=== PATIENT | male | born 1985 | race Caucasian/White ===

== ENCOUNTER 2020-02-14 08:14 | Inpatient (IN) | payer OTHER ==
--- NOTE | 2020-02-14 08:25 | BHS.RME ---
Substance Use & Tx History - Substance Use History Heroin Substance amount: 10 bags Frequency of use: Daily Substance route: Injection (ex: intravenous or skin popping) Date of Last Use: 02/13/20 Cocaine- Powder Substance amount: 2grams Frequency of use: Less than 3 times per week Substance route: Injection (ex: intravenous or skin popping) Date of Last Use: 02/12/20 Nicotine Substance amount: 1pack Frequency of use: Daily Substance route: Smoking Date of Last Use: 02/14/20 Physical/Psych/Mental Status - Behavior General Behavior: Increased activity (restlessness, agitation) Eye Contact: Normal - Cooperativeness Cooperativeness: Cooperative - Thinking Thought Processes: Tight, Logical, Goal Directed Thought content: Future oriented - Physical Health Problems Is patient presently having any pain?: No Does patient presently have any injuries (include location): No Does patient currently have a fever: No Is patient : No COWS - Scale Resting Pulse: 0= [place] 80 or Below Sweatin= Chills/Flushing Restless Observation: 3= Extraneous Movement Pupil Size: 1= Pupils >than Normal Bone or Joint Aches: 1= Mild Discomfort Runny Nose/ Eye Tearin= None GI Upset > 30mins: 0= None Tremor Observation: 2= Slight Tremor Visible Yawning Observation: 2= >3x During Session Anxiety or Irritability: 2=Irritable/Anxious Goose Flesh Skin: 0=Smooth Skin COWS Score: 12
--- NOTE | 2020-02-14 08:41 | HP ---
COWS - Scale Resting Pulse: 0= [place] 80 or Below Sweatin= Chills/Flushing Restless Observation: 3= Extraneous Movement Pupil Size: 1= Pupils >than Normal Bone or Joint Aches: 1= Mild Discomfort Runny Nose/ Eye Tearin= None GI Upset > 30mins: 0= None Tremor Observation: 2= Slight Tremor Visible Yawning Observation: 2= >3x During Session Anxiety or Irritability: 2=Irritable/Anxious Goose Flesh Skin: 0=Smooth Skin COWS Score: 12 CIWA Score - Admission Criteria OASAS Guidelines: Admission for Medically Managed Detox: Requires at least one of the followin. CIWA greater than 12 2. Seizures within the past 24 hours 3. Delirium tremens within the past 24 hours 4. Hallucinations within the past 24 hours 5. Acute intervention needed for co occurring medical disorder 6. Acute intervention needed for co occurring psychiatric disorder 7. Severe withdrawal that cannot be handled at a lower level of care (continued vomiting, continued diarrhea, abnormal vital signs) requiring intravenous medication and/or fluids 8. Admitting History and Physical - Admission History of Present Illness: Mr. Benson is a 34 yo gentleman who presents to [facility] requesting admission to detox for heroin and cocaine use disorder. He was last here for detox in 2013. PMH:/PSH/Psych/Legal:none SOC: lives in the [place] with his parents Substance Use History Heroin Substance amount: 10 bags Frequency of use: Daily Substance route: Injection (ex: intravenous or skin popping) Date of Last Use: 02/13/20 First use age 29 y No OD No Narcan kit Cocaine- Powder Substance amount: 2grams Frequency of use: Less than 3 times per week Substance route: Injection (ex: intravenous or skin popping) Date of Last Use: 02/12/20 First use: age 29 y Nicotine Substance amount: 1pack Frequency of use: Daily Substance route: Smoking First use age 14y Methadone, Suboxone: none History Source: Patient Limitations to Obtaining History: No Limitations - Smoking History Smoking history: Current every day smoker Have you smoked in the past 12 months: Yes Aproximately how many cigarettes per day: 20 - Alcohol/Substance Use Hx Alcohol Use: No Admission ROS S - HPI Allergies/Adverse Reactions: Allergies Allergy/AdvReac Type Severity Reaction Status Date / Time No Known Allergies Allergy Verified 02/14/20 08:41 Exam Limitations: No Limitations - Ebola screening Have you had contact with anyone from an Ebola affected area: No Have you been sick,other than usual withdrawal symptoms: No Do you have a fever: No - Review of Systems Constitutional: No Symptoms Reported EENT: reports: No Symptoms Reported Respiratory: reports: No Symptoms reported Cardiac: reports: No Symptoms Reported GI: reports: Nausea : reports: No Symptoms Reported Musculoskeletal: reports: Joint Pain Integumentary: reports: No Symptoms Reported Neuro: reports: No Symptoms reported Endocrine: reports: No Symptoms Reported Hematology: reports: No Symptoms Reported Psychiatric: reports: Anxious Patient History - Patient Medical History Hx Anemia: No Hx Asthma: No Hx Chronic Obstructive Pulmonary Disease (COPD): No Hx Cancer: No Hx Cardiac Disorders: No Hx Congestive Heart Failure: No Hx Hypertension: No Hx Hypercholesterolemia: No Hx Pacemaker: No HX Cerebrovascular Accident: No Hx Seizures: No Hx Dementia: No Hx Diabetes: No Hx Gastrointestinal Disorders: No Hx Liver Disease: No Hx Genitourinary Disorders: No Hx Sexually Transmitted Disorders: No Hx Renal Disease (ESRD): No Hx Thyroid Disease: No Hx Human Immunodeficiency Virus (HIV): No Hx Hepatitis C: No Hx Depression: No Hx Suicide Attempt: No Hx Bipolar Disorder: No Hx Schizophrenia: No - Patient Surgical History Past Surgical History: Yes Hx Neurologic Surgery: No Hx Cataract Extraction: No Hx Cardiac Surgery: No Hx Lung Surgery: No Hx Breast Surgery: No Hx Breast Biopsy: No Hx Abdominal Surgery: No Hx Appendectomy: No Hx Cholecystectomy: No Hx Genitourinary Surgery: No Hx Section: No Hx Orthopedic Surgery: No Other Surgical History: L ear sx at age 11 yrs Anesthesia Reaction: No - PPD History Date: 01/25/14 Results: 0 mm - Smoking Cessation Smoking history: Current every day smoker Have you smoked in the past 12 months: Yes Aproximately how many cigarettes per day: 20 Cigars Per Day: 0 Hx Chewing Tobacco Use: No Initiated information on smoking cessation: Yes 'Breaking Loose' booklet given: 02/14/20 - Substances abused Heroin Substance route: Injection Frequency: Daily Amount used: 10 bags Age of first use: 29 Date of last use: 02/13/20 Cocaine Substance route: Injection Frequency: 1-2 times per week Amount used: 2 grams Age of first use: 26 Date of last use: 02/12/[address] [facility] - Physical General Appearance: Yes: Within Normal Limits, Nourished, Appropriately Dressed, Anxious HEENTM: Yes: EOMI, Hearing grossly Normal, Normocephalic, Normal Voice Respiratory: Yes: Lungs Clear, Normal Breath Sounds, No Accessory Muscle Use Neck: Yes: Within Normal Limits, Supple Breast: Yes: Breast Exam Deferred Cardiology: Yes: Regular Rhythm, Regular Rate, S1, S2 Abdominal: Yes: Normal Bowel Sounds, Non Tender, Flat, Soft Back: Yes: Normal Inspection Musculoskeletal: Yes: Gait Steady Extremities: Yes: Normal Inspection, Non-Tender Integumentary: Yes: Normal Color, Dry, Warm, Track An - Diagnostic (1) Opioid use with withdrawal Current Visit: Yes Status: Acute (2) Cocaine dependence Current Visit: Yes Status: Acute Qualifiers: Substance use status: uncomplicated Qualified Code(s): F14.20 - Cocaine dependence, uncomplicated (3) Nicotine dependence Current Visit: Yes Status: Acute Qualifiers: Nicotine product type: cigarettes Substance use status: uncomplicated Qualified Code(s): F17.210 - Nicotine dependence, cigarettes, uncomplicated Cleared for Admission [facility] - Detox or Rehab [facility] Level of Care: Medically Managed Detox Regimen/Protocol: Methadone Inpatient Rehab Admission - Rehab Decision to Admit Inpatient rehab admission?: No
[2020-02-14] MEDS ORDERED: ACETAMINOPHEN 325 MG TABLET (FP) PO PRN ×2 (08:45)
[2020-02-14] MEDS ORDERED: MAGNESIUM CITRATE 300 ML BOTTLE PO PRN (08:45)
[2020-02-14] MEDS ORDERED: BISMUTH SUBSALICYLATE 262 MG/15 ML BTL PO PRN (08:45)
[2020-02-14] MEDS ORDERED: IBUPROFEN 400 MG TABLET (FP) PO PRN (08:45)
[2020-02-14] MEDS ORDERED: MENTHOL/PHENOL 1 EACH UD MM PRN (08:45)
[2020-02-14] MEDS ORDERED: METHADONE HCL 10 MG TABLET (FOR DETOX USE ONLY) PO ONE (08:45)
[2020-02-14] MEDS ORDERED: ONDANSETRON *ODT* 4 MG TABLET SL PRN (08:45)
[2020-02-14] MEDS ORDERED: MAG HYDROX/AL HYDROX/SIMETH 30 ML UNIT-DOSE CUP PO PRN (08:45)
[2020-02-14] MEDS ORDERED: MAGNESIUM HYDROX 2400MG/30ML ORAL SUSPENSION 30 ML CUP PO PRN (08:45)
[2020-02-14 08:57] VITALS: BMI 24.7
[2020-02-14] MEDS: NICOTINE 21 MG/24 HOURS TOPICAL PATCH TD SCH (09:44)
[2020-02-14] MEDS ORDERED: hydrOXYzine PAMOATE 25 MG CAPSULE (FP) PO SCH (10:00)
[2020-02-14] MEDS: PRENATAL VITAMINS W/ FOLIC ACID TABLET (FP) PO SCH (10:54)
--- NOTE | 2020-02-14 12:00 | EKG ---
Test Reason : Blood Pressure : / mmHG Vent. Rate : 068 BPM Atrial Rate : 068 BPM P-R Int : 168 ms QRS Dur : 092 ms QT Int : 414 ms P-R-T Axes : 055 068 057 degrees QTc Int : 440 ms NORMAL SINUS RHYTHM NORMAL ECG NO PREVIOUS ECGS AVAILABLE Confirmed by ANASTASIA RIDER MD ([id number]) on 02/14/2020 12:00:02 PM Referred By: Confirmed By:ANASTASIA RIDER MD
[2020-02-14] MEDS: diazePAM 5 MG TABLET PO PRN ×3 (12:38→22:25)
[2020-02-14 15:11] LABS: ALBUMIN 3.8 g/dl (3.4-5.0); BILIRUBIN,TOTAL 0.4 mg/dL (0.2-1); BLOOD UREA NITROGEN 18.6 mg/dL (7-18); CALCIUM 9.3 mg/dL (8.5-10.1); CREATININE 0.9 mg/dL (0.55-1.3); HEMATOCRIT 33.9 % (35.4-49); HEMOGLOBIN 10.7 GM/dL (11.7-16.9); MCHC 31.5 g/dl (32.0-35.9); MEAN PLT VOLUME 9.3 fl (7.5-11.1); PLATELET COUNT 184 K/MM3 (134-434); POTASSIUM 4.1 mmol/L (3.5-5.1); RBC 5.74 M/mm3 (4.00-5.60); WHITE BLOOD COUNT 4.6 K/mm3 (4.0-10.0)
[2020-02-14 15:50] LABS: MCH 18.6 pg (25.7-33.7)
[2020-02-14] MEDS: hydrOXYzine PAMOATE 25 MG CAPSULE (FP) PO PRN (17:21)
[2020-02-14] MEDS: NICOTINE POLACRILEX 2 MG GUM BUC PRN (17:22)
[2020-02-14] MEDS ORDERED: MELATONIN 5 MG TABLETS PO SCH (22:00)
[2020-02-14] MEDS: THIAMINE HCL 100 MG TABLET (FP) PO SCH (22:25)
[2020-02-14] MEDS: cloNIDine HCL 0.1 MG TABLET PO PRN (22:25)
[2020-02-14] MEDS: METHOCARBAMOL 500 MG TABLET PO PRN (22:25)
[2020-02-14] MEDS: MELATONIN 5 MG TABLETS PO PRN (22:27)
[2020-02-15] MEDS: NICOTINE POLACRILEX 2 MG GUM BUC PRN ×4 (08:46→20:50)
[2020-02-15] MEDS ORDERED: METHADONE HCL 5 MG TABLET (FOR DETOX USE ONLY) ONE (09:15)
[2020-02-15] MEDS ORDERED: METHADONE HCL 10 MG TABLET (FOR DETOX USE ONLY) ONE (09:15)
[2020-02-15] MEDS ORDERED: METHADONE (DETOX) 20 MG, METHADONE (DETOX) 5 MG PO ONE (10:00)
[2020-02-15] MEDS: PRENATAL VITAMINS W/ FOLIC ACID TABLET (FP) PO SCH (10:05)
[2020-02-15] MEDS: diazePAM 5 MG TABLET PO PRN ×3 (10:08→19:02)
[2020-02-15] MEDS: NICOTINE 21 MG/24 HOURS TOPICAL PATCH TD SCH (10:11)
[2020-02-15] MEDS: cloNIDine HCL 0.1 MG TABLET PO PRN ×2 (12:53→20:50)
--- NOTE | 2020-02-15 14:07 | PN ---
S COWS - Scale Resting Pulse: 0= [place] 80 or Below Sweatin= No chills or Flushing Restless Observation: 0= Sits Still Pupil Size: 1= Pupils >than Normal Bone or Joint Aches: 2= Severe Diffuse Aches Runny Nose/ Eye Tearin= Nasal Congestion GI Upset > 30mins: 2= Nausea/Diarrhea Tremor Observation of Outstretched Hands: 2= Slight Tremor Visible Yawning Observation: 1= 1-2x During Session Anxiety or Irritability: 2=Irritable/Anxious Goose Flesh Skin: 0=Smooth Skin COWS Score: 11 S Progress Note (SOAP) Subjective: alert,irritable,anxious,interrupted sleep,tremor,pain in the body and back,nause a Objective: 02/15/20 14:09 Vital Signs Temperature 97.3 F L 02/15/20 08:43 Pulse Rate 73 02/15/20 08:43 Respiratory Rate 18 02/15/20 08:43 Blood Pressure 144/70 02/15/20 08:43 O2 Sat by Pulse Oximetry (%) 98 02/15/20 05:54 Laboratory Last Values WBC 4.6 K/mm3 (4.0-10.0) 02/14/20 08:55 RBC 5.74 M/mm3 (4.00-5.60) H 02/14/20 08:55 Hgb 10.7 GM/dL (11.7-16.9) L 02/14/20 08:55 Hct 33.9 % (35.4-49) L 02/14/20 08:55 MCV 59.0 fl (80-96) L 02/14/20 08:55 MCH 18.6 pg (25.7-33.7) L 02/14/20 08:55 MCHC 31.5 g/dl (32.0-35.9) L 02/14/20 08:55 RDW 18.0 % (11.9-15.9) H 02/14/20 08:55 Plt Count 184 K/MM3 (134-434) 02/14/20 08:55 MPV 9.3 fl (7.5-11.1) 02/14/20 08:55 Platelet Comment 02/14/20 08:55 Sodium 142 mmol/L (136-145) 02/14/20 08:55 Potassium 4.1 mmol/L (3.5-5.1) 02/14/20 08:55 Chloride 106 mmol/L (98-107) 02/14/20 08:55 Carbon Dioxide 30 mmol/L (21-32) 02/14/20 08:55 Anion Gap 6 MMOL/L (8-16) L 02/14/20 08:55 BUN 18.6 mg/dL (7-18) H 02/14/20 08:55 Creatinine 0.9 mg/dL (0.55-1.3) 02/14/20 08:55 Est GFR (CKD-EPI)AfAm 129.61 02/14/20 08:55 Est GFR (CKD-EPI)NonAf 111.83 02/14/20 08:55 Random Glucose 85 mg/dL (74-106) 02/14/20 08:55 Calcium 9.3 mg/dL (8.5-10.1) 02/14/20 08:55 Total Bilirubin 0.4 mg/dL (0.2-1) 02/14/20 08:55 AST 36 U/L (15-37) 02/14/20 08:55 ALT 36 U/L (13-61) 02/14/20 08:55 Alkaline Phosphatase 92 U/L (45-117) 02/14/20 08:55 Total Protein 8.0 g/dl (6.4-8.2) 02/14/20 08:55 Albumin 3.8 g/dl (3.4-5.0) 02/14/20 08:55 Syphilis Serology Non-reactive (NONREACTIVE) 02/14/20 08:55 HIV Ag/Ab Combo Qual Negative (NEGATIVE) 02/14/20 10:00 Assessment: 02/15/20 14:10 withdrawal symptom Plan: continue detox methadone regimen,valium 10 mgs po q 4hrs prn for severe withdrawal for 72 hrs
[2020-02-15] MEDS: hydrOXYzine PAMOATE 25 MG CAPSULE (FP) PO PRN (17:11)
[2020-02-15] MEDS: METHOCARBAMOL 500 MG TABLET PO PRN (19:02)
[2020-02-15] MEDS ORDERED: MASKS NR ONE (19:16)
[2020-02-15] MEDS: THIAMINE HCL 100 MG TABLET (FP) PO SCH (23:00)
[2020-02-16] MEDS: diazePAM 5 MG TABLET PO PRN ×4 (01:16→22:27)
[2020-02-16] MEDS: METHOCARBAMOL 500 MG TABLET PO PRN ×3 (05:03→18:16)
[2020-02-16] MEDS: cloNIDine HCL 0.1 MG TABLET PO PRN ×2 (05:03→17:07)
[2020-02-16] MEDS: hydrOXYzine PAMOATE 25 MG CAPSULE (FP) PO PRN ×3 (05:03→22:27)
[2020-02-16] MEDS: NICOTINE POLACRILEX 2 MG GUM BUC PRN ×6 (05:04→22:29)
[2020-02-16] MEDS ORDERED: METHADONE HCL 10 MG TABLET (FOR DETOX USE ONLY) PO ONE (10:00)
[2020-02-16 10:31] LABS: HEMATOCRIT 33.1 % (35.4-49); HEMOGLOBIN 10.4 GM/dL (11.7-16.9); MCHC 31.4 g/dl (32.0-35.9); MEAN CELL VOLUME 58.7 fl (80-96); MEAN PLT VOLUME 9.1 fl (7.5-11.1); PLATELET COUNT 201 K/MM3 (134-434); RBC 5.63 M/mm3 (4.00-5.60); RDW 18.2 % (11.9-15.9); WHITE BLOOD COUNT 4.6 K/mm3 (4.0-10.0)
[2020-02-16 10:32] LABS: MCH 18.4 pg (25.7-33.7)
[2020-02-16] MEDS: PRENATAL VITAMINS W/ FOLIC ACID TABLET (FP) PO SCH (10:50)
[2020-02-16] MEDS: NICOTINE 21 MG/24 HOURS TOPICAL PATCH TD SCH (10:50)
--- NOTE | 2020-02-16 15:02 | PN ---
BHS COWS - Scale Resting Pulse: 0= [place] 80 or Below Sweatin=Flushed/Facial Moisture Restless Observation: 1= Difficult to Sit Still Pupil Size: 0= Normal to Room Light Bone or Joint Aches: 2= Severe Diffuse Aches Runny Nose/ Eye Tearin= None GI Upset > 30mins: 0= None Tremor Observation of Outstretched Hands: 2= Slight Tremor Visible Yawning Observation: 0= None Anxiety or Irritability: 1=Feels Anxious/Irritable Goose Flesh Skin: 0=Smooth Skin COWS Score: 8 BHS Progress Note (SOAP) Subjective: Complaints of sweats, tremors, anxiety, chills and body aches. Objective: 02/16/20 15:00 Vital Signs 02/16/20 02/16/20 08:41 12:56 Temperature 98.4 F 97.8 F Pulse Rate 62 68 Respiratory 18 16 Rate Blood Pressure 126/67 119/74 O2 Sat by Pulse 100 99 Oximetry (%) Laboratory Last Values WBC 4.6 K/mm3 (4.0-10.0) 02/16/20 07:20 RBC 5.63 M/mm3 (4.00-5.60) H 02/16/20 07:20 Hgb 10.4 GM/dL (11.7-16.9) L 02/16/20 07:20 Hct 33.1 % (35.4-49) L 02/16/20 07:20 MCV 58.7 fl (80-96) L 02/16/20 07:20 MCH 18.4 pg (25.7-33.7) L 02/16/20 07:20 MCHC 31.4 g/dl (32.0-35.9) L 02/16/20 07:20 RDW 18.2 % (11.9-15.9) H 02/16/20 07:20 Plt Count 201 K/MM3 (134-434) 02/16/20 07:20 MPV 9.1 fl (7.5-11.1) 02/16/20 07:20 Platelet Comment 02/14/20 08:55 Sodium 142 mmol/L (136-145) 02/14/20 08:55 Potassium 4.1 mmol/L (3.5-5.1) 02/14/20 08:55 Chloride 106 mmol/L (98-107) 02/14/20 08:55 Carbon Dioxide 30 mmol/L (21-32) 02/14/20 08:55 Anion Gap 6 MMOL/L (8-16) L 02/14/20 08:55 BUN 11.4 mg/dL (7-18) 02/16/20 07:20 Creatinine 0.9 mg/dL (0.55-1.3) 02/14/20 08:55 Est GFR (CKD-EPI)AfAm 129.61 02/14/20 08:55 Est GFR (CKD-EPI)NonAf 111.83 02/14/20 08:55 Random Glucose 85 mg/dL (74-106) 02/14/20 08:55 Calcium 9.3 mg/dL (8.5-10.1) 02/14/20 08:55 Total Bilirubin 0.4 mg/dL (0.2-1) 02/14/20 08:55 AST 36 U/L (15-37) 02/14/20 08:55 ALT 36 U/L (13-61) 02/14/20 08:55 Alkaline Phosphatase 92 U/L (45-117) 02/14/20 08:55 Total Protein 8.0 g/dl (6.4-8.2) 02/14/20 08:55 Albumin 3.8 g/dl (3.4-5.0) 02/14/20 08:55 Syphilis Serology Non-reactive (NONREACTIVE) 02/14/20 08:55 COVID-19 (RICHARD) Not detected (Not Detected) 02/14/20 12:30 HIV Ag/Ab Combo Qual Negative (NEGATIVE) 02/14/20 10:00 Labs noted. Assessment: 02/16/20 15:01 Alert and oriented x 3, in no acute respiratory distress. Full ROM, ambulating in the unit without assistance. Withdrawal symptoms. Plan: Continue detox protocol.
[2020-02-16] MEDS: MELATONIN 5 MG TABLETS PO PRN (22:25)
[2020-02-16] MEDS: THIAMINE HCL 100 MG TABLET (FP) PO SCH (22:27)
[2020-02-17] MEDS: METHOCARBAMOL 500 MG TABLET PO PRN (01:07)
[2020-02-17] MEDS: diazePAM 5 MG TABLET PO PRN ×2 (03:07→07:29)
[2020-02-17] MEDS: hydrOXYzine PAMOATE 25 MG CAPSULE (FP) PO PRN ×2 (03:07→07:29)
[2020-02-17 08:19] VITALS: BP 147/96; PULSE 83; TEMP 97.7
[2020-02-17] MEDS ORDERED: METHADONE (DETOX) 10 MG, METHADONE (DETOX) 5 MG PO ONE (10:00)
--- NOTE | 2020-02-17 16:25 | DS ---
[facility] Detox Discharge Summary Admission Date: 02/14/20 - History Present History: Cocaine Dependence, Opioid Dependence Additional Comments: Patient demanded to leave, he is aware that he is not ready for discharge. Patient stated he has to be at work tomorrow at 6am and he must leave. Patient decided to leave AMA despite encouragement from staff to complete detox. Patient left in stable condition. Instructed to call [phone] if sick or withdrawal sxs and to see his PCP within 3 days and for abnormal lab results. Pertinent Past History: Nicotine dependence Heroin dependence Cocaine dependence - Physical Exam Results Vital Signs: Vital Signs Temperature 97.7 F 02/17/20 05:58 Pulse Rate 83 02/17/20 05:58 Respiratory Rate 18 02/17/20 05:58 Blood Pressure 147/96 02/17/20 05:58 O2 Sat by Pulse Oximetry (%) 100 02/17/20 05:58 Pertinent Admission Physical Exam Findings: Withdrawal sxs Laboratory Tests 02/14/20 02/14/20 02/14/20 08:55 08:55 08:55 WBC 4.6 RBC 5.74 H Hgb 10.7 L Hct 33.9 L MCV 59.0 L MCH 18.6 L MCHC 31.5 L RDW 18.0 H Plt Count 184 MPV 9.3 Platelet Comment Sodium 142 Potassium 4.1 Chloride 106 Carbon Dioxide 30 Anion Gap 6 L BUN 18.6 H Creatinine 0.9 Est GFR (CKD-EPI)AfAm 129.61 Est GFR (CKD-EPI)NonAf 111.83 Random Glucose 85 Calcium 9.3 Total Bilirubin 0.4 AST 36 ALT 36 Alkaline Phosphatase 92 Total Protein 8.0 Albumin 3.8 Syphilis Serology Non-reactive COVID-19 (RICHARD) HIV Ag/Ab Combo Qual 02/14/20 02/14/20 02/16/20 10:00 12:30 07:20 WBC 4.6 RBC 5.63 H Hgb 10.4 L Hct 33.1 L MCV 58.7 L MCH 18.4 L MCHC 31.4 L RDW 18.2 H Plt Count 201 MPV 9.1 Platelet Comment Sodium Potassium Chloride Carbon Dioxide Anion Gap BUN Creatinine Est GFR (CKD-EPI)AfAm Est GFR (CKD-EPI)NonAf Random Glucose Calcium Total Bilirubin AST ALT Alkaline Phosphatase Total Protein Albumin Syphilis Serology COVID-19 (RICHARD) Not detected HIV Ag/Ab Combo Qual Negative 02/16/20 07:20 WBC RBC Hgb Hct MCV MCH MCHC RDW Plt Count MPV Platelet Comment Sodium Potassium Chloride Carbon Dioxide Anion Gap BUN 11.4 Creatinine Est GFR (CKD-EPI)AfAm Est GFR (CKD-EPI)NonAf Random Glucose Calcium Total Bilirubin AST ALT Alkaline Phosphatase Total Protein Albumin Syphilis Serology COVID-19 (RICHARD) HIV Ag/Ab Combo Qual Labs reviewed: anemia noted, instructed to follow up with PCP within 3 days and for all abnormal lab results - Medication Discharge Medications: Ambulatory Orders NK [No Known Home Medication] 01/23/14 - Diagnosis (1) Anemia Status: Acute (2) Opioid dependence Status: Active (3) Cocaine dependence Status: Acute Qualifiers: Substance use status: uncomplicated Qualified Code(s): F14.20 - Cocaine dependence, uncomplicated (4) Nicotine dependence Status: Chronic Qualifiers: Nicotine product type: cigarettes Substance use status: uncomplicated Qualified Code(s): F17.210 - Nicotine dependence, cigarettes, uncomplicated - AMA Did Patient Leave Against Medical Advice: Yes (Instructed to call [phone] KUMAR if sick or withdrawal sxs)
[2020-02-18] MEDS ORDERED: METHADONE HCL 10 MG TABLET (FOR DETOX USE ONLY) PO ONE (10:00)
[2020-02-19] MEDS ORDERED: METHADONE HCL 5 MG TABLET (FOR DETOX USE ONLY) PO ONE (06:00)
== END 2020-02-17 09:20 | disposition left against medical advice (07) | DRG 770 ==
LOC: YASAS 08:14 → Y6N 08:58
PROVIDERS: ADMIT Allergy & Immunology; ATTEND Allergy & Immunology
PROC: HZ2ZZZZ Detoxification Services for Substance Abuse Treatment (ICD-10-PCS; principal; 2020-02-14)
DX: F11.23 Opioid dependence with withdrawal (principal); F14.20 Cocaine dependence, uncomplicated; F17.210 Nicotine dependence, cigarettes, uncomplicated; D64.9 Anemia, unspecified
CPT/HCPCS: 36415; 80053; 84520; 85027; 86780; 87389; 93005; 93010; J0735; Q0162; U0003